=== PATIENT | female | born 1975 | race Caucasian/White ===

== ENCOUNTER 2019-08-28 09:29 | Outpatient (REF) | payer OTHER, SELFPAY ==
[2019-08-28 12:04] LABS: Anion Gap 9.7 mmol/L (3-11); BUN 13 mg/dL (7-18); CO2 27.3 mmol/L (21.0-32.0); CREATININE 0.85 mg/dL (0.55-1.02); Calcium 8.7 mg/dL (8.5-10.1); Chloride 104 mmol/L (98-107); Cholesterol 179 mg/dL (<200); Glucose 89 mg/dL (74-106); HDL Cholesterol 113 mg/dL (40-60); Potassium 3.9 mmol/L (3.5-5.1); Sodium 141 mmol/L (136-145); TSH (W/Ref FT4) 2.99 uIU/mL (0.36-3.74)
[2019-08-28 12:07] LABS: Triglyceride < 25 mg/dL (<150)
[2019-08-28 12:18] LABS: LDL CHOLESTEROL 56 mg/dL (<100)
== END 2019-08-28 09:49 ==
LOC: NCHCN 09:29
PROVIDERS: PCP Family Medicine; Visit Provider Nurse Practitioner Family
DX: Z00.00 Encounter for general adult medical examination without abnormal findings (principal); Z13.220 Encounter for screening for lipoid disorders; Z13.29 Encounter for screening for other suspected endocrine disorder
CPT/HCPCS: 80048; 80061; 83721; 84443

== ENCOUNTER 2019-09-03 18:02 | Outpatient (REF) | payer OTHER, SELFPAY ==
--- NOTE | 2019-09-03 | PAPFT_PTH ---
PATIENT: Janina Laboy LOC: NCN #:[id number] AGE/SX: 44/F ROOM: RE09/03/[address]: Demi Jones : 1975 BED: DIS: 09/03/2019 SPEC #: [id number] RECD: 09/03/19 18:09 STATUS: DELL REShawn #: [id number] LUIS MANUEL: 09/03/19 00:[address]: Demi Jones DEPT: [facility] Cytology RECD BY: Monalisa Vilchis ENTERED: 09/03/19 18:10 SP TYPE: PAPFT OTHR DR: Margarette Vega Tissues: 1 - CX/ENDOCX FOR PAP SMEARS Procedures: PAP THIN PREP/[facility] Screening HPV DNA PROBE Comments: [id number]
== END 2019-09-03 18:22 ==
LOC: NCHCN 18:02
PROVIDERS: PCP Family Medicine; Visit Provider Nurse Practitioner Family
DX: Z00.00 Encounter for general adult medical examination without abnormal findings (principal); Z12.4 Encounter for screening for malignant neoplasm of cervix
CPT/HCPCS: 88142; 87624

== ENCOUNTER 2019-10-22 01:32 | Outpatient (CLI) | payer OTHER, SELFPAY ==
--- NOTE | 2019-10-22 08:53 | DI.MAMMO_ITS ---
EXAM: MG MAMMO SCREENING CLINICAL HISTORY: FAMILY H/O BREAST CA, Z80.3.FAMILY H/O BREAST CA TECHNIQUE: Bilateral full field digital CC and MLO mammographic images were obtained with 3D tomosyn thesis and utilizing computer aided detection (CAD). COMPARISON: Available for comparison. FINDINGS: Masses/Architectural Distortion: None seen. Microcalcifications: No suspicious pleomorphic-type are seen. Skin Thickening/Nipple Retraction: None. IMPRESSION: 1. No significant interval change with no specific features of malignancy noted. 2. Unless there is more urgent need, screening mammography is recommended, as per [employer] guidelines. ACR BI-RAD Category- 1 Negative Breast Density - Category C - Heterogeneously dense The mammogram demonstrates the patient's breast tissue is dense. Dense breast tissue is very common a nd is not abnormal but dense breast tissue can make it harder to find cancer on a mammogram. Also, de nse breast tissue may increase their breast cancer risk. This information about the result of the [facility] mogram report was provided to the patient to raise their awareness. Use this report when you speak wi th the patient about their risks for breast cancer, which includes their family history. At that time , you may recommend for more screening tests (Ultrasound or MRI) as they might be useful based on the ir risk. A negative radiographic report should not delay biopsy if a dominant or clinically suspicious mass is present. Up to ten percent of cancers are not identified on mammography. A negative report may reinforce clinical impression. Adenosis and dense breasts may obscure an underlying neoplasm. False positive reports average 6 to 10%. Patient will receive a letter notifying them of these results.
== END 2019-10-22 01:52 ==
PROVIDERS: PCP Family Medicine; Visit Provider Nurse Practitioner Family
DX: Z12.31 Encounter for screening mammogram for malignant neoplasm of breast (principal); Z80.3 Family history of malignant neoplasm of breast
CPT/HCPCS: 77063; 77067

== ENCOUNTER 2020-01-07 10:50 | Outpatient (CLI) | payer OTHER, SELFPAY ==
--- NOTE | 2020-01-07 | DI.RAD_ITS ---
EXAM: XR CHEST 2V PA AND LATERAL CLINICAL HISTORY: ASTHMA, EXERCISE INDUCED, J45.990 TECHNIQUE: 2D digital imaging was performed. COMPARISON: No exams were available for comparison FINDINGS: MEDIASTINUM: Normal. HEART: Normal. PULMONARY VASCULATURE: Normal. LUNGS: Clear. PLEURAL SPACE: No pleural effusion or pneumothorax. BONE:Normal. OTHER FINDINGS:Normal. IMPRESSION: No acute pulmonary findings. DATA REPOSITORY: RADIATION DOSE DELIVERED:
== END 2020-01-07 11:10 ==
PROVIDERS: PCP Family Medicine; Visit Provider Physician Assistant
DX: J45.909 Unspecified asthma, uncomplicated (principal)
CPT/HCPCS: 71046

== ENCOUNTER 2020-05-19 20:52 | Outpatient (REF) | payer BC, SELFPAY ==
[2020-05-21 15:13] LABS: Patient Race White; SARS-CoV-2 RNA Undetected (Undetected); SARS-CoV-2 Specimen Source Nasopharynx
== END 2020-05-19 21:12 ==
LOC: NCHCN 20:52
PROVIDERS: PCP Family Medicine; Visit Provider Nurse Practitioner Family
DX: Z20.828 Contact with and (suspected) exposure to other viral communicable diseases (principal)
CPT/HCPCS: U0003

== ENCOUNTER 2020-11-25 16:56 | Outpatient (REF) | payer BC, SELFPAY ==
[2020-11-25 19:35] LABS: HCT 42.7 % (36.0-46.0); HGB 14.1 g/dL (11.2-15.7); MCH 30.1 pg (27.0-33.0); MPV 11.3 fL (8.0-11.0); Platelet Count 237 10^3/uL (130-400); RBC 4.69 10^6/uL (3.93-5.22); RDW 12.9 % (11.7-14.6); WBC 8.17 10^3/uL (4.4-10.8)
[2020-11-25 19:54] LABS: TSH (W/Ref FT4) 2.69 uIU/mL (0.36-3.74)
[2020-11-25 19:56] LABS: Iron 63 ug/dL (50-170); Total Iron Binding Capacity 331 ug/dL (250-450); Transferrin Sat 19 % (15-50)
[2020-11-25 21:04] LABS: Vitamin B12 1069 pg/mL (193-986)
[2020-11-26 04:52] LABS: Vitamin D 25 Total 48.2 ng/ml (30-100)
[2020-11-26 20:51] LABS: FSH 3.7 mIU/mL (See Note)
== END 2020-11-25 16:57 | disposition home or self-care (01) ==
LOC: NCHCN 16:56
PROVIDERS: PCP Family Medicine; Visit Provider Nurse Practitioner Family
DX: R63.5 Abnormal weight gain (principal); F90.9 Attention-deficit hyperactivity disorder, unspecified type; R53.83 Other fatigue; Z13.29 Encounter for screening for other suspected endocrine disorder; M72.2 Plantar fascial fibromatosis
CPT/HCPCS: 82306; 85027; 82607; 83001; 83002; 83540; 83550; 84443

== ENCOUNTER 2020-12-01 13:19 | Outpatient (REF) | payer BC, SELFPAY ==
[2020-12-01 18:21] LABS: FREE T4 0.85 ng/dL (0.76-1.46)
[2020-12-02 18:37] LABS: Thyroglobulin Antibody <15 U/mL (<=60); Thyroperoxidase Antibody 34 U/mL (<=60)
== END 2020-12-01 13:20 | disposition home or self-care (01) ==
LOC: NCHCN 13:19
PROVIDERS: PCP Family Medicine; Visit Provider Nurse Practitioner Family
DX: R53.83 Other fatigue (principal); R63.5 Abnormal weight gain
CPT/HCPCS: 86376; 84439

== ENCOUNTER 2022-06-21 09:28 | Outpatient (REF) | payer BC, SELFPAY ==
[2022-06-21 14:56] LABS: HGB 13.3 g/dL (11.2-15.7); MCH 29.9 pg (27.0-33.0); MCHC 33.3 % (32.0-36.0); MCV 90 fL (80-95); MPV 11.2 fL (8.0-11.0); Platelet Count 259 10^3/uL (130-400); RBC 4.45 10^6/uL (3.93-5.22); RDW 12.7 % (11.7-14.6); WBC 6.62 10^3/uL (4.4-10.8)
[2022-06-21 16:10] LABS: ALT 28 U/L (14-59); AST 20 U/L (15-37); Albumin 3.6 g/dL (3.4-5.0); Alkaline Phosphatase 62 U/L (46-116); Anion Gap 7.9 mmol/L (3-11); BUN 14 mg/dL (7-18); Bilirubin, Total 0.4 mg/dL (0.2-1.0); CO2 27.1 mmol/L (21.0-32.0); CREATININE 0.7 mg/dL (0.55-1.02); Calcium 8.9 mg/dL (8.5-10.1); Calculated LDL 96 mg/dL (<100); Chloride 105 mmol/L (98-107); Cholesterol 182 mg/dL (<200); Estimated GFR 106.62 (mL/min/1.73m2); Ferritin 65 ng/mL (8-252); Glucose 90 mg/dL (74-106); HDL Cholesterol 80 mg/dL (40-60); Potassium 4.1 mmol/L (3.5-5.1); Sodium 140 mmol/L (136-145); Total Protein 6.4 g/dL (6.4-8.2); Triglyceride 32 mg/dL (<150)
[2022-06-21 16:11] LABS: Iron 87 ug/dL (50-170); Total Iron Binding Capacity 243 ug/dL (250-450); Transferrin Sat 36 % (15-50)
[2022-06-21 22:48] LABS: Insulin 6.4 uIU/mL (<29.0)
== END 2022-06-21 09:29 | disposition home or self-care (01) ==
LOC: NCHCN 09:28
PROVIDERS: PCP Family Medicine; Visit Provider Nurse Practitioner Family
DX: R63.5 Abnormal weight gain (principal); Z00.00 Encounter for general adult medical examination without abnormal findings; R53.83 Other fatigue; F90.9 Attention-deficit hyperactivity disorder, unspecified type; Z13.220 Encounter for screening for lipoid disorders
CPT/HCPCS: 80053; 80061; 85027; 82728; 83525; 83540; 83550

== ENCOUNTER 2022-08-26 15:22 | Outpatient (REF) | payer BC, SELFPAY ==
[2022-08-29 10:52] LABS: Lyme Ab w Rflx to Lyme Confirm Negative (Negative)
== END 2022-08-26 15:23 | disposition home or self-care (01) ==
LOC: NCHCN 15:22
PROVIDERS: PCP Family Medicine; Visit Provider Nurse Practitioner Family
DX: T14.8XXA Other injury of unspecified body region, initial encounter (principal); W57.XXXA Bitten or stung by nonvenomous insect and other nonvenomous arthropods, initial encounter
CPT/HCPCS: 86618

== ENCOUNTER 2022-10-13 11:16 | Outpatient (REF) | payer BC, SELFPAY ==
[2022-10-13 15:27] LABS: T4 6.2 ug/dL (4.7-13.3); TSH 2.74 uIU/mL (0.36-3.74)
[2022-10-13 22:20] LABS: T3, Total 95 ng/dL (97-169)
== END 2022-10-13 11:17 | disposition home or self-care (01) ==
LOC: NCHCN 11:16
PROVIDERS: PCP Family Medicine; Visit Provider Nurse Practitioner Family
DX: R53.83 Other fatigue (principal); R63.5 Abnormal weight gain
CPT/HCPCS: 84436; 84443; 84480

== ENCOUNTER 2023-02-09 14:42 | Outpatient (REF) | payer BC, SELFPAY ==
[2023-02-09 19:31] LABS: ALT 22 U/L (14-59); AST 16 U/L (15-37); Albumin 4.1 g/dL (3.4-5.0); Alkaline Phosphatase 69 U/L (46-116); Amylase 44 U/L (25-115); Anion Gap 7.6 mmol/L (3-11); BUN 12 mg/dL (7-18); Bilirubin, Total 0.4 mg/dL (0.2-1.0); CO2 30.4 mmol/L (21.0-32.0); CREATININE 0.9 mg/dL (0.55-1.02); Calcium 9.2 mg/dL (8.5-10.1); Chloride 104 mmol/L (98-107); Estimated GFR 78.86 (mL/min/1.73m2); FREE T4 0.94 ng/dL (0.76-1.46); Glucose 73 mg/dL (74-106); Hemoglobin A1C 4.6 % (<5.7); Lipase 42 U/L (16-77); Potassium 4.1 mmol/L (3.5-5.1); Sodium 142 mmol/L (136-145); Total Protein 7.1 g/dL (6.4-8.2)
[2023-02-10 20:24] LABS: T3, Total 118 ng/dL (97-169)
== END 2023-02-09 14:43 | disposition home or self-care (01) ==
LOC: NCHCN 14:42
PROVIDERS: PCP Family Medicine; Visit Provider Nurse Practitioner Family
DX: R63.5 Abnormal weight gain (principal); R11.0 Nausea; R73.09 Other abnormal glucose
CPT/HCPCS: 80053; 83690; 82150; 83036; 84439; 84443; 84480

== ENCOUNTER → 2023-10-24 02:41 | Outpatient (CLI) | payer BC, SELFPAY ==
--- NOTE | 2023-10-24 | DI.MAMMO_ITS ---
Exam(s) MAMMO SCREENING EXAM: MAMMO SCREENING CLINICAL HISTORY: SCREENING, Z12.39 TECHNIQUE: Mammograms were interpreted according to the usual protocol including computer analysis w [employer] CAD system, tomosynthesis and C-view imaging. COMPARISON: 2020 FINDINGS: The breasts are composed of scattered fibroglandular densities, Breast Density category B. No suspicious masses or suspicious microcalcifications are seen. No skin thickening or abnormal axillary lymph nodes are seen. There has been no significant change from prior exams. IMPRESSION: BI-RADS Category 1, Negative mammogram Yearly screening mammography is recommended. Breast Density - Category B, scattered fibroglandular densities. A negative radiographic report should not delay biopsy if a dominant or clinically suspicious mass is present. Up to ten percent of cancers are not identified on mammography. A negative report may reinforce clinical impression. Adenosis and dense breasts may obscure an underlying neoplasm. False positive reports average 6 to 10%. Patient will receive a letter notifying them of these results.
== END ==
PROVIDERS: PCP Family Medicine; Visit Provider Nurse Practitioner Family
DX: Z12.31 Encounter for screening mammogram for malignant neoplasm of breast (principal); R92.323 Mammographic fibroglandular density, bilateral breasts
CPT/HCPCS: 77063; 77067

== ENCOUNTER 2024-01-05 12:54 | Outpatient (REF) | payer BC, SELFPAY ==
[2024-01-05 19:02] LABS: ALT 24 U/L (14-59); AST 17 U/L (15-37); Albumin 3.8 g/dL (3.4-5.0); Alkaline Phosphatase 63 U/L (46-116); BUN 17 mg/dL (7-18); Bilirubin, Total 0.4 mg/dL (0.2-1.0); CREATININE 0.9 mg/dL (0.55-1.02); Calcium 9.1 mg/dL (8.5-10.1); Chloride 105 mmol/L (98-107); Estimated GFR 78.37 (mL/min/1.73m2); Glucose 90 mg/dL (74-106); Potassium 4.3 mmol/L (3.5-5.1); Sodium 141 mmol/L (136-145); TSH (W/Ref FT4) 2.16 uIU/mL (0.36-3.74); Total Protein 6.7 g/dL (6.4-8.2)
[2024-01-05 19:12] LABS: Hemoglobin A1C 5.2 % (<5.7)
== END 2024-01-05 12:55 | disposition home or self-care (01) ==
LOC: NCHCN 12:54
PROVIDERS: PCP Family Medicine; Visit Provider Nurse Practitioner Family
DX: E07.89 Other specified disorders of thyroid (principal); E66.8 Other obesity; Z68.32 Body mass index [BMI] 32.0-32.9, adult; Z13.1 Encounter for screening for diabetes mellitus
CPT/HCPCS: 80053; 83036; 84443

== ENCOUNTER 2024-10-01 16:31 | Outpatient (REF) | payer BC, SELFPAY ==
[2024-10-01 19:36] LABS: Hemoglobin A1C 4.9 % (<5.7)
[2024-10-01 19:45] LABS: ALT 17 U/L (14-59); AST 17 U/L (15-37); Albumin 3.5 g/dL (3.4-5.0); Alkaline Phosphatase 64 U/L (46-116); Anion Gap 7.2 mmol/L (3-11); BUN 11 mg/dL (7-18); CO2 28.8 mmol/L (21.0-32.0); CREATININE 0.8 mg/dL (0.55-1.02); Chloride 106 mmol/L (98-107); Estimated GFR 89.71 (mL/min/1.73m2); Glucose 88 mg/dL (74-106); Potassium 3.9 mmol/L (3.5-5.1); Sodium 142 mmol/L (136-145); TSH (W/Ref FT4) 1.77 uIU/mL (0.36-3.74); Total Protein 6.8 g/dL (6.4-8.2)
[2024-10-02 04:02] LABS: FREE T4 0.76 ng/dL (0.76-1.46)
== END 2024-10-01 16:32 | disposition home or self-care (01) ==
LOC: NCHCN 16:31
PROVIDERS: PCP Family Medicine; Visit Provider Nurse Practitioner Family
DX: Z12.31 Encounter for screening mammogram for malignant neoplasm of breast (principal)
CPT/HCPCS: 80053; 83036; 84439; 84443

== ENCOUNTER 2025-08-26 16:48 | Outpatient (REF) | payer BC, SELFPAY ==
[2025-08-26 18:58] LABS: Abs Immature Grans 0.02 10^3/uL (0.0-0.06); HCT 40.0 % (36.0-46.0); HGB 13.4 g/dL (11.2-15.7); Immature Grans % 0.3 %; MCH 30.4 pg (27.0-33.0); MCHC 33.5 % (32.0-36.0); MCV 91 fL (80-95); MPV 11.3 fL (8.0-11.0); Platelet Count 249 10^3/uL (130-400); RBC 4.41 10^6/uL (3.93-5.22); RDW 12.7 % (11.7-14.6); RDW-SD 42.4 fL; WBC 6.05 10^3/uL (4.4-10.8)
[2025-08-26 19:16] LABS: TSH (W/Ref FT4) 1.72 uIU/mL (0.55-4.78); Vitamin D 25 Total 42 ng/mL (30-100)
== END 2025-08-26 16:49 | disposition home or self-care (01) ==
LOC: NCHCN 16:48
PROVIDERS: PCP Family Medicine
DX: R53.82 Chronic fatigue, unspecified (principal)
CPT/HCPCS: 82306; 84443; 85025